=== PATIENT | male | born 1955 | race Hispanic/Latino ===

== ENCOUNTER 2021-04-17 08:39 | Outpatient (CLI) | payer OTHER | END 2021-04-17 08:40 | disposition home or self-care (01) | LOC: ULT 08:39 | PROVIDERS: ATTEND Internal Medicine Gastroenterology | DX: K74.60 Unspecified cirrhosis of liver (principal); E11.9 Type 2 diabetes mellitus without complications; R19.8 Other specified symptoms and signs involving the digestive system and abdomen; R16.2 Hepatomegaly with splenomegaly, not elsewhere classified; R93.2 Abnormal findings on diagnostic imaging of liver and biliary tract; Z86.010 Personal history of colon polyps; Z89.612 Acquired absence of left leg above knee | CPT/HCPCS: 76705 ==

== ENCOUNTER 2021-05-02 08:16 | Outpatient (CLI) | payer OTHER ==
[2021-05-02 09:22] LABS: Estimated GFR-MDRD - POC Greater than 90
== END 2021-05-02 08:17 | disposition home or self-care (01) ==
LOC: MRI 08:16
PROVIDERS: ATTEND Internal Medicine Gastroenterology
DX: K74.60 Unspecified cirrhosis of liver (principal); K76.0 Fatty (change of) liver, not elsewhere classified; R16.1 Splenomegaly, not elsewhere classified; K76.9 Liver disease, unspecified; N28.1 Cyst of kidney, acquired
CPT/HCPCS: 74183; 82565

== ENCOUNTER 2024-05-03 06:57 | Outpatient (CLI) | payer OTHER | END 2024-05-03 06:58 | disposition home or self-care (01) | LOC: BICULT 06:57 | PROVIDERS: ATTEND Physician Assistant Medical | DX: K74.60 Unspecified cirrhosis of liver (principal); R39.12 Poor urinary stream; R16.1 Splenomegaly, not elsewhere classified; Z86.010 Personal history of colon polyps | CPT/HCPCS: 76705 ==

== ENCOUNTER 2025-03-24 07:49 | Outpatient (CLI) | payer OTHER | END 2025-03-24 07:50 | disposition home or self-care (01) | LOC: ULT 07:49 | PROVIDERS: ATTEND Internal Medicine Gastroenterology | DX: K76.0 Fatty (change of) liver, not elsewhere classified (principal); K74.60 Unspecified cirrhosis of liver; R16.1 Splenomegaly, not elsewhere classified | CPT/HCPCS: 76705 ==